=== PATIENT | female | born 1965 | race Caucasian/White ===

== ENCOUNTER 2018-08-08 15:09 | Emergency (ER) | payer MEDICAID ==
[2018-08-08] MEDS: IBUPROFEN 600 MG TAB PO (16:08)
[2018-08-08] MEDS: DIPHTH/TET/ACEL PERTUSS (ADULT) 0.5 ML VIAL IM* (16:09)
== END 2018-08-08 17:08 | disposition home or self-care (01) ==
LOC: FTE 15:09
DX: S61.214A Laceration without foreign body of right ring finger without damage to nail, initial encounter (principal); W18.39XA Other fall on same level, initial encounter; Y92.9 Unspecified place or not applicable; Z23 Encounter for immunization
CPT/HCPCS: 12001; 73130-RT; 90471; 90715; 99283-25

== ENCOUNTER → 2018-10-18 | Emergency (ER) | payer SELFPAY, MEDICAID ==
[2018-10-18] MEDS: KETOROLAC 30 MG INJ IM (17:06)
[2018-10-18] MEDS: ONDANSETRON (ODT) 4 MG TAB ODT (17:06)
== END | disposition home or self-care (01) ==
LOC: FTE 15:14
DX: J10.1 Influenza due to other identified influenza virus with other respiratory manifestations (principal)
CPT/HCPCS: 87400; 96372; 99284-25